=== PATIENT | male | born 1960 | race Caucasian/White ===

== ENCOUNTER 2016-11-30 11:00 | Day surgery (SDC) | payer BC ==
[~2016-11-30 11:00] MED LIST: ANCEF VIAL 1 GM ONE; LR 1000 ML IV 1,000 ML IV ONE; NS 50 ML IV + SPIKE MINIBAG* 50 ML IV ONE
[2016-11-30] MEDS ORDERED: XYLOCAINE 1% and EPINEPHRINE 1:100,000 ONE (11:38)
[2016-11-30] MEDS ORDERED: MARCAINE 0.25% INJ ONE (11:38)
[2016-11-30] MEDS ORDERED: FENTANYL INJ 100 mcg ONE (11:48)
[2016-11-30] MEDS ORDERED: KETALAR ONE (11:48)
--- NOTE | 2016-11-30 13:36 | RAD ---
HISTORY: Postoperative Port-A-Cath placement. Study: Single-view chest. Comparison: None. Findings: The trachea is midline. There is a right IJ [id number] with tip projecting over the cavoatrial zeinab ction. The cardiac silhouette is at the upper limits of normal in size given the portable technique. The lungs are clear without focal consolidation, pleural effusion or pneumothorax. IMPRESSION: Right-sided Aijvaa-G-Riwv with tip projecting over the cavoatrial junction. There is no pneumothorax. Reported By:
--- NOTE | 2016-11-30 14:07 | OR.GENERIC ---
Post-Op Note Generic - Post-Op Note Operative Report: Procedure Note November 30, 2016 Pre-Operative Diagnosis: 1. Chronic lymphocytic leukemia. 2. Phlebosclerosis. Post-Operative Diagnosis: 1. Chronic lymphocytic leukemia. 2. Phlebosclerosis. Procedure: Placement of right internal jugular port-a-cath (ultrasound guided). Surgeon: Osiel Raya MD. Feed Mixer: Chano Machado CRNA. Specimens: None. Estimated blood loss: Minimal. Complications: None. Summary: The patient is a 56 year old male recently diagnosed with CLL. Surgery was consulted for port-a-cath placement. The risk and benefits of the procedure including difficulty with anesthesia, bleeding, infection, cava thrombosis, DVT , PE, as well as pneumothorax were discussed with the patient. The patient understood these risks and requested the procedure. On November 30, 2016, the patients right neck and chest were prepped with Chloraprep and draped in the usual sterile fashion. The skin and subcutaneous tissue overlying the right internal jugular vein was anesthetized using local anesthetic. The right internal jugular vein was then cannulated under ultrasound guidance. A wire was placed into the superior vena cava. The location of the wire was verified using fluoroscopy. A site was selected on the right chest for the port-a-cath hub. The skin was anesthetized. The skin was incised sharply. A pocket was made using blunt dissection and electrocautery. The track between the cannulation site and the right chest incision was anesthetized. A skin jax was made at the cannulation site. The subcutaneous tissue was dilated serially using the Seldinger technique. Next, a dilator and sheath were advanced into the right IJ. The wire and dilator were removed. The catheter was advanced through the sheath to the atriocaval junction. The sheath was peeled away and discarded. The catheter was tunneled to the right chest incision and trimmed to the appropriate length. The catheter along with locking flange was connected to the port-a-cath hub. The hub was sewn to the pectoralis fascia using 3-0 Prolene x 2. The port-a-cath marina and flushed well. The tip of the catheter was verified at the atriocaval junction. The dermis at the right chest incision and cannulation site was re- approximated using inverted, interrupted 3-0 Vicryl sutures. The skin edges were closed using a running 4-0 Monocryl. Benzoin and steri-strips were placed. A sterile dressing was placed. The patient tolerated the procedure well. There were no complications.
[2016-11-30 14:21] VITALS: BP 123/68
[2016-11-30] MEDS ORDERED: DIPRIVAN VIAL ONE (15:55)
== END 2016-11-30 14:10 | disposition home or self-care (01) | DRG 301 ==
LOC: SURG1 11:00
PROVIDERS: ATTEND Student in an Organized Health Care Education/Training Program
PROC: B543ZZA Ultrasonography of Right Jugular Veins, Guidance (ICD-10-PCS; 2016-11-30)
PROC: 05HM33Z Insertion of Infusion Device into Right Internal Jugular Vein, Percutaneous Approach (ICD-10-PCS; principal; 2016-11-30 13:15)
DX: I87.2 Venous insufficiency (chronic) (peripheral) (principal); Z79.899 Other long term (current) drug therapy; I87.8 Other specified disorders of veins
CPT/HCPCS: 71010; 76000; A4222; S0020; J0690; J2001; J3010; J3490; J7120

== ENCOUNTER → 2017-06-07 | Day surgery (SDC) | payer BC ==
[~2017-06-07] MED LIST changes: +ANCEF 1 GM IV PREMIX* 2 GM/100 ML BAG IV ONE; -ANCEF VIAL 1 GM ONE; +BACTROBAN OINT ONE; +DIPRIVAN VIAL ONE; +FENTANYL INJ 100 mcg ONE; -LR 1000 ML IV 1,000 ML IV ONE; +MARCAINE 0.25% INJ ONE; -NS 50 ML IV + SPIKE MINIBAG* 50 ML IV ONE; +NS IRRIGATION 1000 ML 1,000 ML IR ONE; +VERSED ONE; +XYLOCAINE 1 % (PLAIN) ONE; +XYLOCAINE 1% and EPINEPHRINE 1:100,000 ONE; +XYLOCAINE 2 % (PLAIN) ONE
[2017-06-07] MEDS: NS 1000 ML 1,000 ML ONE ×2 (08:47→08:58)
--- NOTE | 2017-06-07 10:29 | OR.GENERIC ---
Post-Op Note Generic - Post-Op Note Operative Report: Procedure Note June 07, 2017 Pre-Operative Diagnosis: 1. Unwanted right internal jugular port-a-cath. 2. Right anterior chest skin lesions x 2 (1 cm and 0.5 cm diameter). Post-Operative Diagnosis: 1. Unwanted right internal jugular port-a-cath. 2. Right anterior chest skin lesions x 2 (1 cm and 0.5 cm diameter). Procedures: 1. Removal of right internal jugular port-a-cath. 2. Excision of right chest skin lesions x 2. Surgeon: Osiel Raya MD. Trouble Shooter: Chano Machado CRNA. Specimens: 1. Right anterior, medial chest skin lesion. 2. Right anterior, lateral chest skin lesion (single stitch superior, double stitch lateral). Estimated blood loss: Minimal. Complications: None. Summary: The patient is a 56 year old male who presented with an unwanted right subclavian port-a-cath as well as two right anterior chest skin lesions. The patient was offered port-a-cath removal and excision of skin lesions. The risk and benefits of the procedures including difficulty with anesthesia, bleeding, infection, recurrence of skin lesions, DVT, as well as PE were discussed with the patient. The patient understood these risks and requested the procedure. On June 07, 2017, the patients right neck and chest were prepped with Chloraprep and draped in the usual sterile fashion. A field block was performed with local anesthetic around the right chest port-a-cath and the skin lesions. The skin was incised sharply though the scar. Using electrocautery and blunt dissection, the sheath containing the port-a-cath hub was opened. The anchoring Prolene sutures were removed. A 3-0 Vicryl purse string was placed around the catheter. The catheter was removed and the suture tied into place. The tip of the catheter was verified. The inferior portion of the capsule was removed using eletrocautery. The wound was irrigated. Bleeding was controlled using electrocautery. The dermis at the right chest incision was re-approximated using inverted, interrupted 3-0 Vicryl sutures. The skin edges were closed using a running 4-0 Monocryl. Mastisol and steri-strips were placed. The medial chest skin lesion was removed sharply with minimal margins. The base was cauterized using electrocautery. The lateral skin lesion was 1 cm in diameter. Margins of 0.5 cm were marked superiorly and inferiorly. A fusiform incision was made transversely to include these margins (6 cm x 2 cm). The lesion was removed sharply. The specimen was labelled with a single stitch superiorly and a double stitch laterally. Bleeding was controlled using electrocautery. The dermis was re-approximated using inverted, interrupted 3-0 Vicryl sutures. The skin edges were closed using a running 4-0 Monocryl. Mastisol and steri-strips were placed. Sterile dressings were placed. The patient was awakened and taken to the recovery room in stable condition. The patient tolerated the procedures well. There were no complications.
[2017-06-07 11:07] VITALS: BP 108/68
== END | disposition home or self-care (01) | DRG 941 ==
LOC: SURG1 08:32
PROVIDERS: ATTEND Student in an Organized Health Care Education/Training Program
PROC: 0JPT0WZ Removal of Totally Implantable Vascular Access Device from Trunk Subcutaneous Tissue and Fascia, Open Approach (ICD-10-PCS; principal; 2017-06-07 10:15)
PROC: 05PY03Z Removal of Infusion Device from Upper Vein, Open Approach (ICD-10-PCS; principal; 2017-06-07 10:15)
PROC: 0HB5XZZ Excision of Chest Skin, External Approach (ICD-10-PCS; principal; 2017-06-07 10:15)
DX: Z45.2 Encounter for adjustment and management of vascular access device (principal); L98.8 Other specified disorders of the skin and subcutaneous tissue; D22.5 Melanocytic nevi of trunk; C44.529 Squamous cell carcinoma of skin of other part of trunk
CPT/HCPCS: A4222; S0020; J0690; J2001; J2250; J3010; J3490